=== PATIENT | female | born 1950 | race Caucasian/White ===

== ENCOUNTER 2017-01-14 09:10 | Emergency (ER) | payer OTHER ==
[2017-01-14 10:16] VITALS: TEMP 97.3
[2017-01-14 10:35] VITALS: BP 124/82; PULSE 77; RESP 16; O2SAT 98
== END 2017-01-14 10:24 | disposition home or self-care (01) | DRG 392 ==
LOC: ED 09:10
DX: K59.00 Constipation, unspecified (principal)
CPT/HCPCS: 99282

== ENCOUNTER 2018-05-31 08:38 | Emergency (ER) | payer OTHER ==
[2018-05-31 08:50] VITALS: RESP 20
[2018-05-31] MEDS ORDERED: ALBUTEROL/IPRATROPIUM 1 VIAL SOL INH ONE (09:01)
[2018-05-31] MEDS ORDERED: ALBUTEROL/IPRATROPIUM 1 VIAL SOL ONE (09:03)
[2018-05-31 09:13] LABS: BASOPHILS % (AUTO) 0 % (0-3); EOSINOPHILS % (AUTO) 1 % (0-9); HEMATOCRIT 32 % (35-47); HEMOGLOBIN 11.2 gm/dl (12.0-15.5); LYMPHOCYTES % (AUTO) 10.6 % (10-50); MEAN CORPUSCULAR HEMOGLOBIN 30.1 pg (27.0-32.0); MEAN CORPUSCULAR VOLUME 86 fL (81-99); NEUTROPHILS % (AUTO) 81.5 % (37-80)
[2018-05-31 09:36] LABS: ALBUMIN 2.8 gm/dl (3.4-5.0); ALKALINE PHOSPHATASE 196 IU/L (46-116); ALT 188 IU/L (14-63); AST 219 IU/L (15-37); BILIRUBIN,TOTAL 1.7 mg/dl (0.2-1.0); BLOOD UREA NITROGEN 11 mg/dl (7-18); CARBON DIOXIDE 28.3 mEq/L (21-32); CHLORIDE 91 mMol/L (98-107); CREATININE 0.89 mg/dl (0.60-1.00); GLUCOSE 123 mg/dl (74-106); POTASSIUM 3.1 mMol/L (3.5-5.1); TOTAL PROTEIN 6.1 gm/dl (6.4-8.2); TROP I < 0.017 ng/ml (0.000-0.056)
[2018-05-31 09:38] LABS: SODIUM 124 mMol/L (136-145)
[2018-05-31] MEDS ORDERED: SODIUM CHLORIDE 0.9% 1000ML 1,000 ML IV ONE (10:10)
[2018-05-31 12:25] VITALS: PULSE 102; TEMP 98.1; O2SAT 96
[2018-05-31 14:19] VITALS: BP 140/62
== END 2018-05-31 14:07 | disposition home or self-care (01) | DRG 204 ==
LOC: ED 08:38
DX: R06.02 Shortness of breath (principal)
CPT/HCPCS: 36415; 71045; 71275; 80053; 83880; 84484; 85025; 85378; 93005; 96365; 99284; 99285; Q9967

== ENCOUNTER 2019-03-02 09:31 | Day surgery (SDC) | payer OTHER ==
[~2019-03-02 09:31] MED LIST: LIDOCAINE HCL 1% MPF 30 SOL ONE; PROPOFOL 500 MG/50 ML EMU IV ONE
[2019-03-02 10:31] VITALS: RESP 16
[2019-03-02 11:31] VITALS: BP 164/92; PULSE 98; TEMP 97.9; O2SAT 99
== END 2019-03-02 11:30 | disposition home or self-care (01) | DRG 392 ==
LOC: SURG 09:31
PROVIDERS: ATTEND Surgery
DX: K21.9 Gastro-esophageal reflux disease without esophagitis (principal); K31.7 Polyp of stomach and duodenum
CPT/HCPCS: J2001; J2704